=== PATIENT | male | born 1985 | race Caucasian/White ===

== ENCOUNTER → 2017-09-29 | Day surgery (SDC) | payer OTHER ==
[~2017-09-29] MED LIST: DEXAMETHASONE SOD PHOS 4 MG/ML VIAL ONE; EPINEPHrine HCL (1:1000) 1 MG/ML VIAL ONE; LACTATED RINGER'S 1000 ML INJ 1,000 ML ONE; MIDAZOLAM HCL 2 MG/2 ML VIAL ONE; MOXIFLOXACIN 0.5% OPHT SOLN 3 ML BTL ONE; ONDANSETRON HCL 4 MG/2 ML VIAL IV PUSH ONE; PHENYLEPHRINE HCL 10% OPTH SOLN 5 ML BTL ONE; PROPOFOL 200 MG/20 ML AMP IV ONE; SODIUM CHLORIDE 0.9% INJ 10 ML ONE; TETRACAINE 0.5% OPTH SOLN 15 ML BTL ONE; TOBRAMYCIN/DEXAMETHASONE OPTH OINT 3.5 GM TUBE ONE; ceFAZolin INJ 1,000 MG VIAL ONE; prednisoLONE ACETATE 1% OPHT SUSP 5 ML BTL ONE
--- NOTE | 2017-09-29 11:57 | MP ---
cc: Pierre Pressley MD DATE OF OPERATION: 09/29/2017 PREOPERATIVE DIAGNOSES: Large retinal detachment through fovea with multiple retinal tears, left eye. High myopia, left eye. POSTOPERATIVE DIAGNOSES: Large retinal detachment through fovea with multiple retinal tears, left eye. High myopia, left eye. PROCEDURE: Pars plana vitrectomy, retinal detachment repair, endolaser, air-fluid exchange, insertion of 20% SF6 gas, left eye. SURGEON: Pierre Pressley MD ANESTHESIA: Dr. Lawson general. ESTIMATED BLOOD LOSS: Less than 1 mL. COMPLICATIONS: None. INDICATIONS FOR PROCEDURE: This is a delightful patient with high myopia who presented with significant vision loss on his left eye. The patient was found to have a large retinal detachment extending through fovea with multiple peripheral retinal breaks. The patient elected for surgical correction understanding the risks, benefits, alternatives. PROCEDURE NOTE: After informed consent was obtained, the patient was brought to the operating room and under general anesthesia was established. The left eye was prepped and draped in sterile fashion with Betadine in the conjunctival fornix. A three-port pars plana vitrectomy was established with self-retaining infusion cannula. Vitreous was evacuated and vitreous traction of the peripheral retina was relieved. PFO was instilled. The retina was reattached while subretinal fluid was removed via peripheral retinal break. Endolaser was applied surrounding retinal breaks in 360 degrees in the far periphery. Air-fluid exchange was carried out. The retina remained nicely attached. 20% SF6 gas was instilled. The trocars were removed and sclerotomies closed with 7-0 Vicryl suture. Conjunctivae was reapproximated with 6-0 plain gut. Subconjunctival injection of Ancef and dexamethasone were given. The eye was patched with tobramycin ointment. The patient was brought to the recovery room in stable condition, to continue followup with [facility] for his postoperative care. MD GRISEL Torres/DARREN , 11:23 AM , 11:55 AM
== END | disposition home or self-care (01) ==
LOC: ESDC 07:01
PROVIDERS: ATTEND Ophthalmology
DX: H33.022 Retinal detachment with multiple breaks, left eye (principal); H52.12 Myopia, left eye
CPT/HCPCS: 00145; 67108; J0171; J0690; J1100; J2250; J2405; J3010; J7120